=== PATIENT | female | born 1995 | race Caucasian/White ===

== ENCOUNTER 2018-10-30 09:25 | Inpatient (IN) | payer MEDICAID ==
[~2018-10-30] VITALS: Ht 154.9 cm; Wt 81.6 kg
[2018-10-30] MEDS ORDERED: IBUPROFEN 400MG TABLET ONE (10:04)
[2018-10-30 10:37] LABS: BASOPHILS % 0.4 % (0.0-2.0); EOSINOPHILS % 0.4 % (0.0-5.0); HEMATOCRIT. 37.9 % (36.0-48.0); HEMOGLOBIN. 12.2 g/dL (12.0-16.0); LYMPHOCYTES % 19.1 % (20.0-50.0); MEAN CORPUSCULAR HEMOGLOBIN 24.8 pg (28.0-32.0); MEAN PLATELET VOLUME 9.9 fl (7.4-10.4); MONOCYTES % 4.5 % (2.0-8.0); NEUTROPHILS % 75.6 % (40.0-76.0); PLATELET 206 x1000/uL (130-400); RED BLOOD CELL COUNT 4.91 mill/uL (4.2-5.4); RED CELL DISTRIBUTION WIDTH 14.5 % (11.6-14.6)
[2018-10-30 10:45] LABS: PARTIAL THROMBOPLASTIN TIME 25.7 sec (23.4-31.0); PROTHROMBIN TIME 9.8 sec (9.1-11.1)
[2018-10-30] MEDS ORDERED: OXYCODONE HCL/ACETAMINOPHEN 5/325MG TABLET PO PRN (10:45)
[2018-10-30] MEDS ORDERED: DEXT 5%/LR + PITOCIN 20UNITS/L 1,000 ML IV SCH (10:45)
[2018-10-30] MEDS ORDERED: IBUPROFEN 800MG TABLET PO PRN (10:45)
[2018-10-30] MEDS ORDERED: METHYLERGONOVINE MALEATE 0.2 MG/ML IM PRN (10:45)
[2018-10-30] MEDS ORDERED: RHO(D) IMMUNE GLOBULIN 300 MCG/SYR IM SCH (10:45)
[2018-10-30] MEDS ORDERED: BISACODYL 10MG SUPP PR PRN (10:45)
[2018-10-30] MEDS ORDERED: LANOLIN OINT 0.25 GM TUBE TOP PRN (10:45)
[2018-10-30] MEDS ORDERED: LACTATED RINGERS 1,000 ML IV SCH (11:00)
[2018-10-30] MEDS ORDERED: METHYLERGONOVINE 0.2 MG IM SCH (11:00)
[2018-10-30] MEDS ORDERED: [UNRECOGNIZED DRUG - OTHER] IM SCH (11:00)
[2018-10-30 11:30] VITALS: BP 105/55
[2018-10-30 13:00] VITALS: BP 103/52
[2018-10-30] MEDS ORDERED: OXYTOCIN 10 UNITS/ML 1ML ONE (14:11)
[2018-10-30 17:53] VITALS: BP 114/75
[2018-10-30 18:36] LABS: HEPATITIS B SURFACE ANTIGEN NEGATIVE
[2018-10-30 20:10] VITALS: BP 108/62
[2018-10-30] MEDS: SIMETHICONE 80MG TABLET CHEW PO SCH (21:25)
[2018-10-30] MEDS: IBUPROFEN 400MG TABLET PO PRN (21:32)
[2018-10-30] MEDS ORDERED: [UNRECOGNIZED DRUG - OTHER] SUBCUT SCH (23:59)
[2018-10-31 00:56] LABS: CLARITY URINE CLEAR (CLEAR); COLOR URINE YELLOW (YELLOW); KETONES URINE NEGATIVE (NEGATIVE); LEUKOCYTE ESTERASE URINE 2+ (NEGATIVE); NITRITE URINE NEGATIVE (NEGATIVE); OCCULT BLOOD URINE 3+ (NEGATIVE); PROTEIN URINE NEGATIVE (NEGATIVE); SPECIFIC GRAVITY URINE 1.018 (1.005-1.030); UROBILINOGEN URINE 0.2 E.U./dL (0.2-1.0)
[2018-10-31 01:07] LABS: *AMPHETAMINES SCREEN URINE NEGATIVE (NEGATIVE); *BARBITURATES SCREEN URINE NEGATIVE (NEGATIVE); *BENZODIAZEPINES SCREEN URINE NEGATIVE (NEGATIVE); *COCAINE SCREEN URINE NEGATIVE (NEGATIVE)
[2018-10-31 01:08] LABS: CANNABINOID URINE SCREEN NEGATIVE (NEGATIVE); METHADONE URINE SCREEN NEGATIVE (NEGATIVE); OPIATES URINE SCREEN NEGATIVE (NEGATIVE); PHENCYCLIDINE URINE SCREEN NEGATIVE (NEGATIVE)
[2018-10-31 04:00] VITALS: BP 98/66
[2018-10-31 06:54] LABS: BASOPHILS % 0.4 % (0.0-2.0); EOSINOPHILS % 0.4 % (0.0-5.0); HEMATOCRIT. 34.6 % (36.0-48.0); HEMOGLOBIN. 11.4 g/dL (12.0-16.0); LYMPHOCYTES % 26.5 % (20.0-50.0); MEAN PLATELET VOLUME 9.9 fl (7.4-10.4); MONOCYTES % 6.4 % (2.0-8.0); NEUTROPHILS % 66.3 % (40.0-76.0); PLATELET 202 x1000/uL (130-400); RED BLOOD CELL COUNT 4.56 mill/uL (4.2-5.4); RED CELL DISTRIBUTION WIDTH 14.7 % (11.6-14.6)
[2018-10-31] MEDS: SIMETHICONE 80MG TABLET CHEW PO SCH ×3 (08:47→21:21)
[2018-10-31] MEDS: PRENATAL VIT/FE FUMARATE/FA TABLET PO SCH (08:47)
[2018-10-31] MEDS: FERROUS SULFATE 325MG TABLET PO SCH ×2 (08:47→18:23)
[2018-10-31] MEDS: IBUPROFEN 400MG TABLET PO PRN (08:52)
[2018-10-31 09:00] VITALS: BP 116/68
[2018-10-31] MEDS ORDERED: MEDROXYPROGESTERONE ACETATE 150MG/ML VIAL IM NR (12:00)
[2018-10-31 16:00] VITALS: BP 130/68
[2018-10-31 20:35] VITALS: BP 109/62
[2018-11-01 05:10] VITALS: BP 106/70
[2018-11-01 08:20] VITALS: BP 103/56
[2018-11-01] MEDS: PRENATAL VIT/FE FUMARATE/FA TABLET PO SCH (09:20)
[2018-11-01] MEDS: FERROUS SULFATE 325MG TABLET PO SCH (09:20)
[2018-11-01] MEDS: SIMETHICONE 80MG TABLET CHEW PO SCH (09:20)
== END 2018-11-01 10:15 | disposition home or self-care (01) | DRG 560 ==
LOC: 8 EST LDRP 09:25 → OBSVTOIN 09:25 → 8EST 13:24
PROVIDERS: ADMIT Specialist; ATTEND Specialist
PROC: 10E0XZZ Delivery of Products of Conception, External Approach (ICD-10-PCS; principal; 2018-10-30)
DX: O80 Encounter for full-term uncomplicated delivery (principal); Z37.0 Single live birth; Z3A.39 39 weeks gestation of pregnancy
CPT/HCPCS: 36415; 80305; 86592; 86703; 86762; 86850; 86900; 87340; 99281; J1050